=== PATIENT | female | born 1980 | race Caucasian/White ===

== ENCOUNTER 2017-05-23 01:06 | Emergency (ER) | payer OTHER ==
[~2017-05-23] VITALS: Ht 160 cm; Wt 67.0 kg
[2017-05-23 01:10] VITALS: BP 139/82
== END 2017-05-23 02:54 | disposition left against medical advice (07) ==
LOC: EMS 01:07
DX: M54.2 Cervicalgia (principal); R51 Headache; Z53.21 Procedure and treatment not carried out due to patient leaving prior to being seen by health care provider

== ENCOUNTER 2017-09-14 18:53 | Emergency (ER) | payer OTHER ==
[~2017-09-14] VITALS: Ht 157.5 cm; Wt 63.6 kg
[2017-09-14] MEDS ORDERED: KETOROLAC TROMETHAMINE 30 MG/ML VIAL IM ONE (21:00)
[2017-09-14 21:45] VITALS: BP 124/78
== END 2017-09-14 22:02 | disposition home or self-care (01) ==
LOC: EMS 18:54
DX: S29.012A Strain of muscle and tendon of back wall of thorax, initial encounter (principal); X50.9XXA Other and unspecified overexertion or strenuous movements or postures, initial encounter; Y93.89 Activity, other specified; Y92.89 Other specified places as the place of occurrence of the external cause; Y99.8 Other external cause status
CPT/HCPCS: 96372; 99283; J1885